=== PATIENT | male | born 1955 | race Hispanic/Latino ===

== ENCOUNTER 2021-04-23 11:26 | Emergency (ER) | payer MEDICARE ==
[~2021-04-23] VITALS: Ht 170.2 cm; Wt 88.5 kg
[2021-04-23 12:01] LABS: CLARITY,URINE CLOUDY (CLEAR); COLOR,URINE ORANGE (YELLOW); LEUKOCYTE ESTERASE ,URINE NEGATIVE (NEGATIVE); NITRITE,URINE POSITIVE (NEGATIVE)
[2021-04-23 12:02] LABS: KETONES,URINE NEGATIVE (NEGATIVE)
[2021-04-23] MEDS ORDERED: CEPHALEXIN500 MG PO (12:23)
[2021-04-23 12:43] LABS: COLOR,URINE YELLOW (YELLOW); KETONES,URINE TRACE (NEGATIVE); LEUKOCYTE ESTERASE ,URINE NEGATIVE (NEGATIVE); NITRITE,URINE POSITIVE (NEGATIVE); PROTEIN,URINE DIPSTICK 2+ (NEGATIVE); URINE UROBILINOGEN 1 mg/dL (0.2 - 1)
[2021-04-23 12:48] LABS: CLARITY,URINE HAZY (CLEAR)
[2021-04-23 12:48] LABS: BACTERIA,URINE RARE /HPF; EPITHELIAL CELLS,URINE RARE /LPF; RBC,URINE 21-50 /HPF (0-5); RENAL EPITHELIAL CELLS,URINE FEW; WBC,URINE (MAN) 0-5 /HPF (0-5)
[2021-04-23 12:59] LABS: BACTERIA,URINE FEW /HPF; RBC,URINE >50 /HPF (0-5); WBC,URINE (MAN) 0-5 /HPF (0-5)
[2021-04-23 13:00] LABS: EPITHELIAL CELLS,URINE RARE /LPF; RENAL EPITHELIAL CELLS,URINE FEW
== END 2021-04-23 12:50 | disposition home or self-care (01) ==
LOC: ER 11:45
DX: R33.9 Retention of urine, unspecified (principal); R31.9 Hematuria, unspecified; E11.8 Type 2 diabetes mellitus with unspecified complications
CPT/HCPCS: 51700; 81001; 87086; 99283

== ENCOUNTER 2021-04-29 10:21 | Emergency (ER) | payer MEDICARE ==
[~2021-04-29] VITALS: Ht 170.2 cm; Wt 88.5 kg
[~2021-04-29 10:21] MED LIST: CEPHALEXIN500 MG PO
== END 2021-04-29 11:50 | disposition home or self-care (01) ==
LOC: ER 10:54
DX: R33.9 Retention of urine, unspecified (principal); R39.89 Other symptoms and signs involving the genitourinary system; E11.9 Type 2 diabetes mellitus without complications
CPT/HCPCS: 99283

== ENCOUNTER 2021-11-27 08:40 | Emergency (ER) | payer MEDICARE ==
[~2021-11-27] VITALS: Ht 170.2 cm; Wt 88.5 kg
[2021-11-27 10:30] LABS: CLARITY,URINE CLOUDY (CLEAR); COLOR,URINE YELLOW (YELLOW); LEUKOCYTE ESTERASE ,URINE MODERATE (NEGATIVE); NITRITE,URINE NEGATIVE (NEGATIVE); PROTEIN,URINE DIPSTICK 2+ (NEGATIVE)
[2021-11-27 10:31] LABS: KETONES,URINE NEGATIVE (NEGATIVE); URINE UROBILINOGEN 0.2 mg/dL (0.2 - 1)
[2021-11-27 10:52] LABS: BACTERIA,URINE FEW /HPF; EPITHELIAL CELLS,URINE FEW /LPF; RBC,URINE >50 /HPF (0-5); WBC,URINE (MAN) >50 /HPF (0-5)
== END 2021-11-27 09:50 | disposition home or self-care (01) ==
LOC: ER 08:56
DX: R33.9 Retention of urine, unspecified (principal); E11.9 Type 2 diabetes mellitus without complications
CPT/HCPCS: 51700; 81001; 87086; 87186; 99282

== ENCOUNTER → 2021-12-06 | Outpatient (CLI) | payer MEDICARE | LOC: US 13:57 | PROVIDERS: ATTEND Urology | DX: N45.2 Orchitis (principal) | CPT/HCPCS: 93976 ==

== ENCOUNTER → 2022-01-13 | Outpatient (CLI) | payer MEDICARE ==
[2022-01-10 10:45] LABS: BASOPHILS # (AUTO) 0.1 (0.0-0.1); BASOPHILS % 1.1 % (0.0-1.0); EOSINOPHILS # (AUTO) 0.6 (0.0-0.4); EOSINOPHILS % 8.4 % (0.0-6.0); HEMATOCRIT 47.9 % (38.2-49.6); HEMOGLOBIN 15.2 g/dL (14.0-18.0); LYMPHOCYTES # (AUTO) 3.2 (1.0-3.2); MEAN CORPUSCULAR HEMOGLOBIN 28.7 pg (28-32); MEAN CORPUSCULAR HGB CONC 31.7 g/dL (31-35); MEAN CORPUSCULAR VOLUME 90.4 fL (81-99); MONOCYTES # (AUTO) 0.6 (0.2-0.8); MONOCYTES % 8.2 % (4.4-11.3); NEUTROPHILS # (AUTO) 2.9 (2.1-6.9); NEUTROPHILS % 38.9 % (38.7-80.0); PLATELET COUNT 259 x10e3/uL (140-360); RED CELL DISTRIBUTION WIDTH 13.8 % (11.7-14.4)
[2022-01-10 11:04] LABS: ANION GAP 11.3 mmol/L (8-16); CALCIUM 9.4 mg/dL (8.4-10.2); POTASSIUM 4.3 mmol/L (3.5-5.1)
[2022-01-10 11:22] LABS: CREATININE, SERUM 0.74 mg/dL (0.72-1.25)
[~2022-01-13] MED LIST changes: +CRESTOR10 MG PO; +DIABETIC MEDICATION; +FAMOTIDINE20 MG PO; +LEVOFLOXACIN250 MG PO; +LISINOPRIL10 MG PO
== END | disposition home or self-care (01) ==
LOC: OR 06:54 → LAB 06:54 → EDSTATUS 09:00
PROVIDERS: ATTEND Urology
DX: D49.4 Neoplasm of unspecified behavior of bladder (principal); N21.0 Calculus in bladder; R33.9 Retention of urine, unspecified; Z53.8 Procedure and treatment not carried out for other reasons; U07.1 COVID-19; Z01.810 Encounter for preprocedural cardiovascular examination; Z01.812 Encounter for preprocedural laboratory examination; Z01.818 Encounter for other preprocedural examination
CPT/HCPCS: 36415; 71046; 80048; 85025; 93005; U0002

== ENCOUNTER → 2022-01-23 | Day surgery (SDC) | payer MEDICARE ==
[~2022-01-23] MED LIST changes: +ACETAMINOPHEN/CODEINE 300MG - 30MG TAB ONE; +BELLADONNA/OPIUM 30 MG SUPP RC ONE; +FENTANYL CITRATE/PF 100MCG/2 ML INJ ONE; +GENTAMICIN 80MG/NS 100 ML 200 ML IV ONE; +IOPAMIDOL 300MG/ML 50ML INFUS..BTL IV ONE; +LIDOCAINE HCL 2% LOCAL INJ 5 ML SDV VIAL INJ ONE; +MEPERIDINE HCL INJ 25 MG/ML VIAL ONE; +MIDAZOLAM HCL 2 MG/2 ML VIAL ONE; +ONDANSETRON HCL INJ 2MG/ML 2ML 2 MG/ML VIAL ONE; +PHENYLEPHRINE HCL 1% 10 MG/ML VIAL ONE; +POVIDONE IODINE 0.05% 0.05 % ML PO ONE; +PROPOFOL IV EMULSION 10 MG/ML 20 ML VIAL ONE; +RYBELSUS3 MG PO; +SODIUM CHLORIDE 0.9% 50ML 100 ML ONE
[2022-01-23 15:10] VITALS: BP 140/90
== END | disposition home or self-care (01) ==
LOC: OR 08:48
PROVIDERS: ATTEND Urology
DX: D49.4 Neoplasm of unspecified behavior of bladder (principal); N21.0 Calculus in bladder; N40.0 Benign prostatic hyperplasia without lower urinary tract symptoms; N39.0 Urinary tract infection, site not specified; I10 Essential (primary) hypertension; E78.5 Hyperlipidemia, unspecified; E11.9 Type 2 diabetes mellitus without complications; K21.9 Gastro-esophageal reflux disease without esophagitis; Z79.899 Other long term (current) drug therapy; Z68.31 Body mass index [BMI] 31.0-31.9, adult; Z87.891 Personal history of nicotine dependence
CPT/HCPCS: 36415; 52005; 52318; 74420; 82948; 88300; C1758; J0690; J1580; J2001; J2175; J2250; J2370; J2405; J2704; J3010; Q9967

== ENCOUNTER → 2022-04-17 | Day surgery (SDC) | payer MEDICARE ==
[2022-04-16 08:56] LABS: BASOPHILS # (AUTO) 0.1 (0.0-0.1); BASOPHILS % 0.7 % (0.0-1.0); EOSINOPHILS # (AUTO) 0.4 (0.0-0.4); HEMATOCRIT 49.5 % (38.2-49.6); HEMOGLOBIN 15.7 g/dL (14.0-18.0); LYMPHOCYTES # (AUTO) 3.3 (1.0-3.2); LYMPHOCYTES % 44.7 % (18.0-39.1); MEAN CORPUSCULAR HEMOGLOBIN 29.1 pg (28-32); MEAN CORPUSCULAR HGB CONC 31.7 g/dL (31-35); MEAN CORPUSCULAR VOLUME 91.7 fL (81-99); MONOCYTES # (AUTO) 0.5 (0.2-0.8); MONOCYTES % 7.1 % (4.4-11.3); PLATELET COUNT 220 x10e3/uL (140-360); RED CELL DISTRIBUTION WIDTH 12.9 % (11.7-14.4)
[2022-04-16 09:19] LABS: ANION GAP 9.3 mmol/L (8-16); CALCIUM 8.8 mg/dL (8.4-10.2); CREATININE, SERUM 0.81 mg/dL (0.72-1.25); POTASSIUM 4.3 mmol/L (3.5-5.1)
[~2022-04-17] MED LIST changes: +DEXAMETHASONE SOD PHOS INJ 4 MG/ML SDV ONE; +EPHEDRINE SULFATE INJ 50 MG/ML VIAL ONE; -GENTAMICIN 80MG/NS 100 ML 200 ML IV ONE; +GLIPIZIDE5 MG PO; -IOPAMIDOL 300MG/ML 50ML INFUS..BTL IV ONE; +IOPAMIDOL 610MG/1ML 300 MG/ML VIAL IV ONE; -MEPERIDINE HCL INJ 25 MG/ML VIAL ONE; -PHENYLEPHRINE HCL 1% 10 MG/ML VIAL ONE; +SEVOFLURANE INHAL SOLN 250 ML PEN BTL ONE; -SODIUM CHLORIDE 0.9% 50ML 100 ML ONE
[2022-04-17 15:25] VITALS: BP 144/87
== END | disposition home or self-care (01) ==
LOC: OR 11:26
PROVIDERS: ATTEND Urology
DX: N21.0 Calculus in bladder (principal); N40.0 Benign prostatic hyperplasia without lower urinary tract symptoms; I10 Essential (primary) hypertension; E78.5 Hyperlipidemia, unspecified; E11.9 Type 2 diabetes mellitus without complications; Z01.812 Encounter for preprocedural laboratory examination; Z20.822 Contact with and (suspected) exposure to COVID-19; Z79.84 Long term (current) use of oral hypoglycemic drugs; Z79.899 Other long term (current) drug therapy
CPT/HCPCS: 36415 ×2; 52318; 74420; 80048; 82948; 85025; 88300; C1758; J0690; J1100; J2001; J2250; J2405; J2704; J3010; Q9967; U0002

== ENCOUNTER 2022-05-02 17:23 | Emergency (ER) | payer MEDICARE ==
[~2022-05-02] VITALS: Ht 170.2 cm; Wt 88.5 kg
[~2022-05-02 17:23] MED LIST changes: -ACETAMINOPHEN/CODEINE 300MG - 30MG TAB ONE; -BELLADONNA/OPIUM 30 MG SUPP RC ONE; -DEXAMETHASONE SOD PHOS INJ 4 MG/ML SDV ONE; -EPHEDRINE SULFATE INJ 50 MG/ML VIAL ONE; -FENTANYL CITRATE/PF 100MCG/2 ML INJ ONE; -IOPAMIDOL 610MG/1ML 300 MG/ML VIAL IV ONE; -LIDOCAINE HCL 2% LOCAL INJ 5 ML SDV VIAL INJ ONE; -MIDAZOLAM HCL 2 MG/2 ML VIAL ONE; -ONDANSETRON HCL INJ 2MG/ML 2ML 2 MG/ML VIAL ONE; -POVIDONE IODINE 0.05% 0.05 % ML PO ONE; -PROPOFOL IV EMULSION 10 MG/ML 20 ML VIAL ONE; -SEVOFLURANE INHAL SOLN 250 ML PEN BTL ONE
== END 2022-05-02 18:35 | disposition home or self-care (01) ==
LOC: ER 17:44
DX: R33.9 Retention of urine, unspecified (principal); E11.9 Type 2 diabetes mellitus without complications
CPT/HCPCS: 51700; 99282